=== PATIENT | female | born 1965 | race Caucasian/White ===

== ENCOUNTER 2020-12-30 13:34 | Emergency (ER) | payer MEDICARE, OTHER ==
[~2020-12-30] VITALS: Ht 162.6 cm; Wt 124.7 kg
--- NOTE | 2020-12-30 13:55 | NUR ---
BIBS FOR C/O LOWER ABDOMINAL PAIN 10/04 SINCE TESTERDAY,BLOOD NOTED IN HER STOOL VOMITED ONCE THIS MORNING. DENIES N/V AT THIS TIME. ABDOMEN SOFT AND NON-DISTENDED. WILL CONTINUE TO MONITOR THE PATIENT.
--- NOTE | 2020-12-30 14:21 | NUR ---
DR GILBERT AT THE BEDSIDE
[2020-12-30 14:22] LABS: BASOPHILS # (AUTO) 0.1 K/uL (0.0-0.2); BASOPHILS % (AUTO) 0.9 % (0.0-2.0); EOSINOPHILS % (AUTO) 1.1 % (0.0-6.0); HEMATOCRIT 43 % (33-45); HEMOGLOBIN 14.1 g/dL (11.5-14.8); LYMPHOCYTES # (AUTO) 1.5 K/uL (0.8-4.8); LYMPHOCYTES % (AUTO) 10.3 % (20.0-44.0); MEAN CORPUSCULAR HGB CONC 33 g/dl (31.0-36.0); MEAN CORPUSCULAR VOLUME 80 fL (82-100); MONOCYTES # (AUTO) 0.6 K/uL (0.1-1.30); MONOCYTES % (AUTO) 4.1 % (2.0-12.0); NEUTROPHILS # (AUTO) 12.2 K/uL (1.8-8.9); NEUTROPHILS % (AUTO) 83.6 % (43.0-81.0); PLATELET COUNT (AUTO) 389 K/uL (150-450); RED BLOOD CELL COUNT(AUTO) 5.38 MIL/uL (4.0-5.2); WHITE BLOOD COUNT (AUTO) 14.7 K/uL (4.3-11.0)
[2020-12-30 14:26] LABS: BILIRUBIN,URINE Negative (NEGATIVE); COLOR,URINE YELLOW (YELLOW); LEUKOCYTE ESTERASE ,URINE Negative (NEGATIVE); NITRITE, URINE Negative (NEGATIVE); PH,URINE 7.5 (5.0-8.0); PROTEIN,URINE Trace mg/dl (NEGATIVE); UGLUCOSE Negative (NEGATIVE); UROBILINOGEN,URINE 0.2 EU/dL (0.2)
--- NOTE | 2020-12-30 14:29 | NUR ---
URINE COLLECTED AND SENT TO THE LAB
[2020-12-30 14:30] LABS: CALCIUM, SERUM 8.7 mg/dL (8.5-10.1); CREATININE 0.9 mg/dL (0.6-1.3); POTASSIUM 4.1 mmol/L (3.5-5.1)
[2020-12-30 14:36] LABS: ALBUMIN 3.8 g/dL (3.4-5.0); BILIRUBIN,DIRECT 0.1 mg/dL (0.0-0.2); BILIRUBIN,TOTAL 0.4 mg/dL (0.2-1.0); TOTAL PROTEIN, SERUM 8.1 g/dL (6.4-8.2)
[2020-12-30 14:40] LABS: BACTERIA,URINE Few /HPF (None Seen); MUCUS,URINE Few /LPF (None Seen); RBC,URINE 0-2 /HPF (0-2); SQUAMOUS EPITHELIAL CELL,UR Few /HPF (None Seen); WBC,URINE 0-2 /HPF (0-3)
--- NOTE | 2020-12-30 14:58 | NUR ---
THE PATIENT IS BACK FROM CT
--- NOTE | 2020-12-30 15:11 | NUR ---
THE PATIENT IS BACK FROM CT
[2020-12-30] MEDS ORDERED: ONDANSETRON HCL/PF 4 MG/2 ML VIAL IVP ONE (15:30)
[2020-12-30] MEDS ORDERED: KETOROLAC TROMETHAMINE INJ 30 MG/ML VIAL IV ONE (15:30)
[2020-12-30] MEDS ORDERED: KETOROLAC TROMETHAMINE 15 MG/ML VIAL ONE (15:33)
[2020-12-30] MEDS ORDERED: ONDANSETRON HCL/PF 4 MG/2 ML VIAL ONE (15:33)
--- NOTE | 2020-12-30 15:37 | NUR ---
TORADOL 15 MG IV PUSH GIVEN FOR ABD PAIN 10/04.
[2020-12-30] MEDS ORDERED: MORPHINE SULFATE INJ 2 MG/ML DISP.SYRIN IV ONE (16:30)
[2020-12-30] MEDS ORDERED: MORPHINE SULFATE INJ 2 MG/ML DISP.SYRIN ONE (16:53)
[2020-12-30 16:54] LABS: BAND % (MANUAL) 1 % (0.0-5.0); LYMPHOCYTES % (MANUAL) 15 % (16-48); MONOCYTES % (MANUAL) 2 % (0-11.0); NEUTROPHILS % (MANUAL) 82 (42-76)
[2020-12-30] MEDS ORDERED: BISA-79 PO (19:14)
--- NOTE | 2020-12-30 19:24 | NUR ---
IV removed. Catheter intact and site benign. Pressure and 4x4 applied to site. No bleeding noted.Patient discharged to home in stable condition. Written and verbal after care instructions given. Patient verbalizes understanding of instruction.
[2020-12-30 19:25] VITALS: BP 132/84
== END 2020-12-30 19:25 | disposition home or self-care (01) ==
LOC: ER 14:11
DX: K59.00 Constipation, unspecified (principal); K92.2 Gastrointestinal hemorrhage, unspecified; J45.909 Unspecified asthma, uncomplicated; E11.9 Type 2 diabetes mellitus without complications; M19.90 Unspecified osteoarthritis, unspecified site; Z88.2 Allergy status to sulfonamides
CPT/HCPCS: 36415; 74176; 80048; 80076; 81001; 83690; 85007; 85025; 96374; 96375; 99284; J1885; J2270; J2405

== ENCOUNTER 2021-07-27 08:13 | Emergency (ER) | payer MEDICARE, OTHER ==
[~2021-07-27] VITALS: Ht 162.6 cm; Wt 124.7 kg
[~2021-07-27 08:13] MED LIST: BISA-79 PO
--- NOTE | 2021-07-27 08:23 | NUR ---
BIB SELF C/O COUGH, CONGESTION AND SOB X 3 DAYS. AMBULATORY, PLACED ON BED, AAOX4, SATURATING AT 93% RA.
--- NOTE | 2021-07-27 08:24 | NUR ---
AT BEDSIDE FOR EVAL.
[2021-07-27] MEDS ORDERED: ALBUTEROL FS 2.5 MG/3 ML VIAL.NEB NEB ONE (08:30)
[2021-07-27] MEDS ORDERED: predniSONE 20 MG TABLET PO ONE (08:30)
[2021-07-27] MEDS ORDERED: IPRATROPIUM NEB FS 0.5 MG/2.5 ML AMPUL.NEB NEB ONE (08:30)
[2021-07-27] MEDS ORDERED: predniSONE 20 MG TABLET ONE (08:32)
--- NOTE | 2021-07-27 08:33 | NUR ---
SWAB FOR COVID19 SENT TO LAB
--- NOTE | 2021-07-27 08:35 | NUR ---
RT AT BEDSIDE FOR BREATHING TX.
[2021-07-27] MEDS ORDERED: IPRATROPIUM NEB FS 0.5 MG/2.5 ML AMPUL.NEB ONE (08:36)
[2021-07-27] MEDS ORDERED: ALBUTEROL FS 2.5 MG/3 ML VIAL.NEB ONE (08:36)
--- NOTE | 2021-07-27 08:52 | NUR ---
SKY DIVER AT BEDSIDE FOR XRAY.
[2021-07-27 09:48] VITALS: BP 128/71
[2021-07-27] MEDS ORDERED: PRED50TA PO (10:44)
[2021-07-27] MEDS ORDERED: LEVO750T46 PO (10:44)
--- NOTE | 2021-07-27 10:48 | NUR ---
Patient discharged to home in stable condition. Written and verbal after care instructions given. Patient verbalizes understanding of instruction.
== END 2021-07-27 11:16 | disposition home or self-care (01) ==
LOC: ER 08:16
DX: J22 Unspecified acute lower respiratory infection (principal); S00.82XA Blister (nonthermal) of other part of head, initial encounter; X58.XXXA Exposure to other specified factors, initial encounter; Y92.89 Other specified places as the place of occurrence of the external cause; J45.909 Unspecified asthma, uncomplicated; Z20.822 Contact with and (suspected) exposure to COVID-19; Z88.2 Allergy status to sulfonamides; M35.00 Sjogren syndrome, unspecified; E11.9 Type 2 diabetes mellitus without complications
CPT/HCPCS: 71045; 87426; 94640 ×2; 99285; J7512; C9803

== ENCOUNTER 2021-08-06 09:11 | Emergency (ER) | payer MEDICARE, OTHER ==
[~2021-08-06] VITALS: Ht 167.6 cm; Wt 127.0 kg
[~2021-08-06 09:11] MED LIST changes: +LEVO750T46 PO; +PRED50TA PO
--- NOTE | 2021-08-06 09:15 | NUR ---
The patient is [id number] from home, c/o left thigh pain x 4 days, 12/04 ps took naprosyn/gabapentin/tylenol last night and did not help. The patient is alert and oriented x4. Denies any trauma. Will continue to monitor the patient.
--- NOTE | 2021-08-06 09:33 | NUR ---
DR BELTRAN AT THE BEDSIDE
--- NOTE | 2021-08-06 09:44 | NUR ---
X RAY AT BEDSIDE
[2021-08-06] MEDS ORDERED: DIAZEPAM 5 MG TABLET ONE (09:50)
[2021-08-06] MEDS ORDERED: KETOROLAC TROMETHAMINE INJ 30 MG/ML VIAL ONE (09:50)
[2021-08-06] MEDS ORDERED: HYDROCODONE/APAP 5/325MG TABLET ONE (09:50)
[2021-08-06] MEDS ORDERED: KETOROLAC TROMETHAMINE INJ 60 MG/2 ML VIAL IM ONE (10:00)
[2021-08-06] MEDS ORDERED: HYDROCODONE/APAP 5/325MG TABLET PO ONE (10:00)
[2021-08-06] MEDS ORDERED: DIAZEPAM 5 MG TABLET PO ONE (10:00)
[2021-08-06] MEDS ORDERED: OXYC5CAP18 PO (11:30)
--- NOTE | 2021-08-06 11:41 | NUR ---
Patient discharged to home in stable condition. Written and verbal after care instructions given. Patient verbalizes understanding of instruction.
[2021-08-06 11:51] VITALS: BP 131/68
== END 2021-08-06 11:52 | disposition home or self-care (01) ==
LOC: ER 09:12
DX: S76.912A Strain of unspecified muscles, fascia and tendons at thigh level, left thigh, initial encounter (principal); J45.909 Unspecified asthma, uncomplicated; E11.9 Type 2 diabetes mellitus without complications; Z87.19 Personal history of other diseases of the digestive system; Z88.8 Allergy status to other drugs, medicaments and biological substances; Z79.899 Other long term (current) drug therapy; X58.XXXA Exposure to other specified factors, initial encounter; Y93.89 Activity, other specified; Y92.89 Other specified places as the place of occurrence of the external cause; Y99.8 Other external cause status
CPT/HCPCS: 73503; 93971; 96372; 99284; J1885; 73502